=== PATIENT | male | born 1980 | race Caucasian/White ===

== ENCOUNTER → 2020-12-17 | Outpatient (CLI) | payer OTHER ==
--- NOTE | 2020-12-17 19:21 | REP ---
INDICATION: PAIN IN JOINTS OF LEFT HAND COMPARISON: None. TECHNIQUE: AP, lateral, bilateral oblique views left hand. FINDINGS: Osseous structures, joint spaces, and surrounding soft tissues are essentially age-appropriate and within normal limits. Mild subluxation at the 1st carpometacarpal joint cannot be excluded and should be correlated with patient's symptoms. No overt osteoarthritic or inflammatory arthritic changes are appreciated. No evidence for acute or healed injury. IMPRESSION: Essentially age-appropriate examination. As above.. <Electronically signed by Alexander Tavares > 12/17/20 [id number]
== END ==
LOC: M RAD 18:47
PROVIDERS: ATTEND Physician Assistant
DX: M25.542 Pain in joints of left hand (principal)